=== PATIENT | male | born 1980 | race Caucasian/White ===

== ENCOUNTER 2019-01-20 20:32 | Emergency (ER) | payer OTHER ==
[2019-01-20 20:48] VITALS: BP 134/71
[2019-01-20] MEDS ORDERED: IBUPROFEN 800 MG TABLET PO ONE (22:24)
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
== END 2019-01-20 22:33 | disposition home or self-care (01) ==
LOC: ER 20:32
DX: M54.2 Cervicalgia (principal); V53.5XXA Driver of pick-up truck or van injured in collision with car, pick-up truck or van in traffic accident, initial encounter
CPT/HCPCS: 99283